=== PATIENT | female | born 1985 | race Caucasian/White ===

== ENCOUNTER 2020-01-10 09:25 | Emergency (ER) | payer BC, OTHER ==
[2020-01-10 09:30] VITALS: RESP 16
[2020-01-10 09:35] VITALS: TEMP 98.7
--- NOTE | 2020-01-10 10:00 | ED ---
Female Urogenital HPI <Sumeet Urena - Last Filed: 01/10/20 12:17> - General Source: patient, RN notes reviewed, old records reviewed Mode of arrival: ambulatory Limitations: no limitations <Vickie Hernandez - Last Filed: 01/10/20 12:21> - General Chief complaint: Vaginal Bleeding Stated complaint: 6 wks preg/vaginal bleeding Time Seen by Provider: 01/10/20 09:33 - History of Present Illness Initial comments: This Patient is a pleasant 34-year-old female who presents to the ER today for evaluation for vaginal bleeding starting today. She states that she is a proximally 6 weeks based off of her last menstrual period she is a female. She states that the bleeding seemed to be morning heavy for the past few hours. She reports some lower abdominal cramping. She states that she previously saw Dr. Akbar over her last pregnancies. She denies any dysuria. She states that she has not had recent intercourse. (Vickie Hernandez) - Related Data Home Medications Medication Instructions Recorded Confirmed [id number] Acid 1 cap PO DAILY 09/11/13 01/10/20 [-U Capsule] Allergies Allergy/AdvReac Type Severity Reaction Status Date / Time hydrocodone bitartrate AdvReac Vomiting Verified 01/10/20 10:54 [From Vicodin] Review of Systems ROS Other: All systems not noted in ROS Statement are negative. <Sumeet Urena - Last Filed: 01/10/20 12:17> ROS Other: All systems not noted in ROS Statement are negative. <Vickie Hernandez - Last Filed: 01/10/20 12:21> ROS Statement: Those systems with pertinent positive or pertinent negative responses have been documented in the HPI. Past Medical History Past Medical History: Hearing Disorder / Deafness Additional Past Medical History / Comment(s): pt states she had acute onset of hearing loss at age 12 and had surgery to repair the loss in 1998. no impairment since then. History of Any Multi-Drug Resistant Organisms: None Reported Past Surgical History: Adenoidectomy, Ear Surgery, Orthopedic Surgery, Tonsillectomy Additional Past Surgical History / Comment(s): foot surgery- 2006 and 2007. wisdom teeth 2006. tonsilectomy/adenoiectomy- 2006 Past Anesthesia/Blood Transfusion Reactions: No Reported Reaction Past Psychological History: Anxiety, Depression Past Alcohol Use History: None Reported Past Drug Use History: None Reported - Past Family History Mother Family Medical History: Diabetes Mellitus, Eye Disorder, Thyroid Disorder Additional Family Medical History / Comment(s): hypothyroid and macular degeneration. Hoshimonos disease Sister(s) Family Medical History: Thyroid Disorder Additional Family Medical History / Comment(s): graves disease Brother(s) History Unknown: Yes Family Medical History: Thyroid Disorder Additional Family Medical History / Comment(s): hyperthyroid <Vickie Hernandez - Last Filed: 01/10/20 12:21> General Exam Limitations: no limitations General appearance: alert, in no apparent distress Head exam: Present: atraumatic, normocephalic, normal inspection Eye exam: Present: normal appearance ENT exam: Present: normal exam, mucous membranes moist Neck exam: Present: normal inspection. Absent: tenderness, meningismus, lymphadenopathy Respiratory exam: Present: normal lung sounds bilaterally. Absent: respiratory distress, wheezes, rales, rhonchi, stridor Cardiovascular Exam: Present: regular rate, normal rhythm, normal heart sounds. Absent: systolic murmur, diastolic murmur, rubs, gallop, clicks GI/Abdominal exam: Present: soft, normal bowel sounds. Absent: distended, tenderness, guarding, rebound, rigid External exam: Present: normal external exam Speculum exam: Present: vaginal bleeding. Absent: normal speculum exam By manual exam: Absent: normal by manual exam Extremities exam: Present: normal inspection, full ROM, normal capillary refill. Absent: tenderness, pedal edema, joint swelling, calf tenderness Back exam: Present: normal inspection Neurological exam: Present: alert, oriented X3, CN II-XII intact Psychiatric exam: Present: normal affect, normal mood <Tiana Hernandezily - Last Filed: 01/10/20 12:21> - General Exam Comments Initial Comments: 34-year-old female. Alert and oriented 3. No acute distress. (Vickie Hernandez) Course Vital Signs 01/10/20 01/10/20 09:28 11:50 Temperature 98.7 F Pulse Rate 97 60 Respiratory 16 16 Rate Blood Pressure 144/89 110/71 O2 Sat by Pulse 100 94 L Oximetry Medical Decision Making - Lab Data Result diagrams: 01/10/20 10:00 01/10/20 10:00 <Sumeet Urena - Last Filed: 01/10/20 12:17> - Lab Data Result diagrams: 01/10/20 10:00 01/10/20 10:00 - Radiology Data Radiology results: report reviewed <Vickie Hernandez - Last Filed: 01/10/20 12:21> - Medical Decision Making Case was discussed with on-call [employer] MANAGER Dr. Dash who will follow-up with the patient. She requests repeat beta hCG Monday or Monday and will see patient in the office on Monday and repeat ultrasound at that point. Patient was evaluated by myself, Dr. Urena and reexamined. I do agree with PA findings. This includes diagnostic interpretation and treatment plan. Patient is resting comfortably in bed. Abdomen and lower abdominal/pelvic exam externally is without tenderness. (Sumeet Urena) Patient is a 34-year-old female presents to the ER today for evaluation for concern for vaginal bleeding starting today. She wishes 6 weeks . At this time she has no significant abdominal tenderness. She had no adnexal tenderness on exam did have vaginal bleeding. Ultrasound was completed and shows no viable IUP. Her serum hCG is 8.6. She is Rh+. She is female. Discussed likely miscarriage versus early ectopic . Discussed Patient needs to have repeat hCG and follow-up with [employer] CASE MANAGER. Discussed the case with Dr. Urena and discussed the case with Dr. Yi. (Vickie Hernandez) - Lab Data Lab Results 01/10/20 01/10/20 01/10/20 Range/Units 10:00 10:00 10:00 WBC 10.0 (3.8-10.6) k/uL RBC 4.79 (3.80-5.40) m/uL Hgb 14.9 (11.4-16.0) gm/dL Hct 45.5 (34.0-46.0) % MCV 95.1 (80.0-100.0) fL MCH 31.1 (25.0-35.0) pg MCHC 32.7 (31.0-37.0) g/dL RDW 12.0 (11.5-15.5) % Plt Count 164 (150-450) k/uL Neutrophils % 83 % Lymphocytes % 11 % Monocytes % 4 % Eosinophils % 1 % Basophils % 1 % Neutrophils # 8.3 H (1.3-7.7) k/uL Lymphocytes # 1.1 (1.0-4.8) k/uL Monocytes # 0.4 (0-1.0) k/uL Eosinophils # 0.1 (0-0.7) k/uL Basophils # 0.1 (0-0.2) k/uL Sodium 140 (137-145) mmol/L Potassium 4.0 (3.5-5.1) mmol/L Chloride 108 H (98-107) mmol/L Carbon Dioxide 25 (22-30) mmol/L Anion Gap 7 mmol/L BUN 8 (7-17) mg/dL Creatinine 0.71 (0.52-1.04) mg/dL Est GFR (CKD-EPI)AfAm >90 (>60 ml/min/1.73 sqM) Est GFR (CKD-EPI)NonAf >90 (>60 ml/min/1.73 sqM) Glucose 105 H (74-99) mg/dL Calcium 9.2 (8.4-10.2) mg/dL HCG, Quant 8.6 mIU/mL Urine Color Urine Appearance (Clear) Urine pH (5.0-8.0) Ur Specific [place] (1.001-1.035) Urine Protein (Negative) Urine Glucose (UA) (Negative) Urine Ketones (Negative) Urine Blood (Negative) Urine Nitrite (Negative) Urine Bilirubin (Negative) Urine Urobilinogen (<2.0) mg/dL Ur Leukocyte Esterase (Negative) Urine RBC (0-5) /hpf Urine WBC (0-5) /hpf Ur Squamous Epith Cells (0-4) /hpf Urine Mucus (None) /hpf Urine HCG, Qual Not Detected (Not Detectd) Blood Type Blood Type Recheck Bld Type Recheck Status 01/10/20 01/10/20 Range/Units 10:00 10:00 WBC (3.8-10.6) k/uL RBC (3.80-5.40) m/uL Hgb (11.4-16.0) gm/dL Hct (34.0-46.0) % MCV (80.0-100.0) fL MCH (25.0-35.0) pg MCHC (31.0-37.0) g/dL RDW (11.5-15.5) % Plt Count (150-450) k/uL Neutrophils % % Lymphocytes % % Monocytes % % Eosinophils % % Basophils % % Neutrophils # (1.3-7.7) k/uL Lymphocytes # (1.0-4.8) k/uL Monocytes # (0-1.0) k/uL Eosinophils # (0-0.7) k/uL Basophils # (0-0.2) k/uL Sodium (137-145) mmol/L Potassium (3.5-5.1) mmol/L Chloride (98-107) mmol/L Carbon Dioxide (22-30) mmol/L Anion Gap mmol/L BUN (7-17) mg/dL Creatinine (0.52-1.04) mg/dL Est GFR (CKD-EPI)AfAm (>60 ml/min/1.73 sqM) Est GFR (CKD-EPI)NonAf (>60 ml/min/1.73 sqM) Glucose (74-99) mg/dL Calcium (8.4-10.2) mg/dL HCG, Quant mIU/mL Urine Color Yellow Urine Appearance Clear (Clear) Urine pH 6.0 (5.0-8.0) Ur Specific [place] 1.007 (1.001-1.035) Urine Protein Negative (Negative) Urine Glucose (UA) Negative (Negative) Urine Ketones Negative (Negative) Urine Blood Moderate H (Negative) Urine Nitrite Negative (Negative) Urine Bilirubin Negative (Negative) Urine Urobilinogen <2.0 (<2.0) mg/dL Ur Leukocyte Esterase Negative (Negative) Urine RBC >182 H (0-5) /hpf Urine WBC 16 H (0-5) /hpf Ur Squamous Epith Cells 1 (0-4) /hpf Urine Mucus Rare H (None) /hpf Urine HCG, Qual (Not Detectd) Blood Type O Positive Blood Type Recheck O Pos Bld Type Recheck Status No - Radiology Data Ultrasound shows no intrauterine gestation identified. May be very early . Correlate with beta hCG. Small amount of red amount of free fluid. Consider ectopic with a differential. Small follicle-type appearing on right ovary. (Vickie Hernandez) Disposition <Sumeet Urena - Last Filed: 01/10/20 12:17> Is patient prescribed a controlled substance at d/c from ED?: No Time of Disposition: 12:20 <Vickie Hernandez - Last Filed: 01/10/20 12:21> Clinical Impression: Bleeding in early Disposition: HOME SELF-CARE Condition: Good Instructions (If sedation given, give patient instructions): Threatened Miscarriage (ED) Additional Instructions: Patient advised to have repeat hCG in 2 days and follow-up with Dr. Yi on Monday. Return to the emergency department if any alarming signs or symptoms occur. Referrals: None,Stated [Primary Care Provider] - 1-2 days Shakira Yi DO [Doctor of Osteopathic Medicine] - 1-2 days
[2020-01-10 10:13] LABS: Basophils # (A) 0.1 k/uL (0-0.2); Basophils % (A) 1 %; Eosinophils # (A) 0.1 k/uL (0-0.7); Eosinophils % (A) 1 %; HCT 45.5 % (34.0-46.0); HGB 14.9 gm/dL (11.4-16.0); Lymphocytes # (A) 1.1 k/uL (1.0-4.8); Lymphocytes % (A) 11 %; MCH 31.1 pg (25.0-35.0); MCHC 32.7 g/dL (31.0-37.0); MCV 95.1 fL (80.0-100.0); Mean Platelet Volume 9.6; Monocytes # (A) 0.4 k/uL (0-1.0); Monocytes % (A) 4 %; Neutrophils # (A) 8.3 k/uL (1.3-7.7); Neutrophils % (A) 83 %; Platelet Count 164 k/uL (150-450); RBC 4.79 m/uL (3.80-5.40)
[2020-01-10 10:24] LABS: African American GFR (CKD) >90 (>60 ml/min/1.73 sqM); Anion Gap 7 mmol/L; Blood Urea Nitrogen 8 mg/dL (7-17); Calcium 9.2 mg/dL (8.4-10.2); Carbon Dioxide 25 mmol/L (22-30); Chloride 108 mmol/L (98-107); Glucose 105 mg/dL (74-99); Non-African American GFR(CKD) >90 (>60 ml/min/1.73 sqM); Sodium 140 mmol/L (137-145)
[2020-01-10 10:40] LABS: HCG,Quantitative Serum 8.6 mIU/mL
--- NOTE | 2020-01-10 10:57 | US ---
EXAMINATION TYPE: Transabdominal DATE OF EXAM: 01/10/2020 10:36 AM COMPARISON: NONE CLINICAL HISTORY: pain, 6 weeks, bleeding cramping, first us. EXAM PERFORMED: Transvaginal (TV) and Transabdominal (TA) EXAM MEASUREMENTS: GESTATIONAL AGE / DATING Physician Established: Not yet established Dates by LMP: (5 weeks/4 days) EDC: 09/07/2020 Dates by First Scan: No previous this is first scan Dates by Current Scan for: No IUP seen at this time MATERNAL ANATOMY Uterus: 8.1 x 4.7 x 4.5 cm Right Ovary: 1.8 x 1.3 x 1.5 cm Left Ovary: 2.6 x 1.3 x 1.7 cm Post CDS / Adnexa: small to moderate amount of free fluid visualized Presence of free fluid: small amount in left adnexa Presence of corpus luteal cyst: no Presence of subchorionic bleed: no GESTATION / SURVEY IUP: No IUP seen at this time Date of LMP: 12/02/2019 Beta HcG (if available): 8.6 No IUP visualized. Echogenic foci visualized within myometrium. Cystic area visualized adjacent to th e left ovary, possible pedunculated cyst measuring 0.7 cm IMPRESSION: 1. No intrauterine gestation identified. May be very early . Correlate with beta hCG. 2. A small to moderate amount of free fluid. Consider ectopic within the differential. 3. Small follicle type appearance on the right ovary.
[2020-01-10 11:26] LABS: Appearance,Urine Clear (Clear); Bilirubin,Urine Negative (Negative); Blood,Urine Moderate (Negative); Color,Urine Yellow; Glucose,Urine (UA) Negative (Negative); Ketones,Urine Negative (Negative); Leukocyte Esterase,Urine Negative (Negative); Mucus,Urine Rare /hpf; Nitrite,Urine Negative (Negative); Protein,Urine Negative (Negative); RBC,Urine >182 /hpf (0-5); Specific Gravity,Urine 1.007 (1.001-1.035); Squamous Epithelial Cell,Urine 1 /hpf (0-4); Urobilinogen,Urine <2.0 mg/dL (<2.0); WBC,Urine 16 /hpf (0-5)
[2020-01-10 11:54] VITALS: PULSE 60
[2020-01-10 12:30] VITALS: BP 112/71
== END 2020-01-10 12:35 | disposition home or self-care (01) ==
LOC: EC 09:25
DX: O20.9 Hemorrhage in early pregnancy, unspecified (principal); Z88.8 Allergy status to other drugs, medicaments and biological substances; Z3A.01 Less than 8 weeks gestation of pregnancy
CPT/HCPCS: 36415; 76801; 76817; 80048; 81001; 81025; 84702; 85025; 86900; 86901; 87086; 99284

== ENCOUNTER → 2020-01-13 | Outpatient (CLI) | payer SELFPAY | END | disposition home or self-care (01) | LOC: LABWHC1 12:49 | PROVIDERS: ATTEND Physician Assistant Medical | DX: O20.0 Threatened abortion (principal) | CPT/HCPCS: 36415; 84702 ==